=== PATIENT | female | born 1940 | race Caucasian/White ===

== ENCOUNTER 2020-09-22 14:13 | Inpatient (IN) ==
[2020-09-22] MEDS: Melatonin 3 MG TABLET PO SCH (22:17)
[2020-09-22] MEDS: Carbidopa/Levodopa 25/100 TABLET PO SCH (22:17)
[2020-09-23] MEDS: *HR* OxyCODONE/APAP 5/325 TABLET PO PRN ×2 (01:13→21:11)
[2020-09-23] MEDS: *HR* LORazepam 0.5 MG TABLET PO PRN (01:13)
[2020-09-23 05:05] LABS: Basophils % 0.4 %; Eosinophils # 0.1 K/mcL (0.0-0.6); Eosinophils % 1.1 %; Hematocrit 30.8 % (35.3-44.9); Immature Granulocytes % 0.6 % (0-4); Lymphocytes # 1.3 K/mcL (0.6-4.6); Mean Corpuscular HGB Conc 32.5 g/dL (31.6-35.5); Mean Corpuscular Hemoglobin 28.8 pg (28.0-33.3); Mean Corpuscular Volume 88.8 fL (83.0-100.0); Mean Platelet Volume 9.4 fL (9.4-12.4); Monocytes % 10.3 %; Neutrophils # 7.3 K/mcL (1.6-8.9); Platelet Count 391 K/mcL (140-400); Red Blood Count 3.47 M/mcL (3.82-4.97); Red Cell Distribution Width 13.1 % (11.5-14.5); Segmented Neutrophils % 74.6 %; White Blood Count 9.7 K/mcL (4.3-11.1)
[2020-09-23 05:18] LABS: BUN/Creatinine Ratio 24 (6-26); Blood Urea Nitrogen 11 mg/dL (8-23); Calcium 8.7 mg/dL (8.6-10.3); Carbon Dioxide 33 mEq/L (23-29); Chloride 92 mEq/L (98-107); Glucose 127 mg/dL (70-105); Osmolality,Calculated 273 (280-300); Sodium 131 mEq/L (136-145); eGFR For African Americans > 60 (> 60); eGFR For Non-African Americans > 60 (> 60)
[2020-09-23] MEDS: *HR* Enoxaparin 40 MG/0.4 ML SYRINGE SQ SCH (05:18)
[2020-09-23] MEDS: Carbidopa/Levodopa 25/100 TABLET PO SCH ×3 (09:46→21:11)
[2020-09-23] MEDS: Multivit/Ca/Min/Fe/FA 1 TAB TABLET PO SCH (09:46)
[2020-09-23] MEDS: *HR* Glimepiride 2 MG TABLET PO SCH (09:46)
[2020-09-23] MEDS: Potassium Chloride Elixir 20 MEQ/15 ML UDC PO SCH (09:47)
[2020-09-23] MEDS: amLODIPine 5 MG TABLET PO SCH (09:47)
[2020-09-23] MEDS: Cholecalciferol (D-3) 1,000 UNIT (25MCG) TABLET PO SCH (09:47)
[2020-09-23] MEDS: Aspirin 81 MG TAB.CHEW PO SCH (09:47)
[2020-09-23] MEDS: Ipratropium/Albuterol Neb 3 ML IH PRN ×2 (10:12→20:44)
[2020-09-23] MEDS: Furosemide 40 MG TABLET PO SCH (19:05)
[2020-09-23] MEDS: Melatonin 3 MG TABLET PO SCH (21:11)
[2020-09-24] MEDS: *HR* LORazepam 0.5 MG TABLET PO PRN ×2 (00:37→22:00)
[2020-09-24] MEDS: *HR* Enoxaparin 40 MG/0.4 ML SYRINGE SQ SCH (07:26)
[2020-09-24] MEDS: Cholecalciferol (D-3) 1,000 UNIT (25MCG) TABLET PO SCH (08:58)
[2020-09-24] MEDS: Aspirin 81 MG TAB.CHEW PO SCH (08:58)
[2020-09-24] MEDS: Carbidopa/Levodopa 25/100 TABLET PO SCH ×3 (08:59→21:54)
[2020-09-24] MEDS: *HR* Glimepiride 2 MG TABLET PO SCH (08:59)
[2020-09-24] MEDS: Multivit/Ca/Min/Fe/FA 1 TAB TABLET PO SCH (08:59)
[2020-09-24] MEDS: amLODIPine 5 MG TABLET PO SCH (08:59)
[2020-09-24] MEDS: Furosemide 40 MG TABLET PO SCH (09:00)
[2020-09-24] MEDS: polyethylene glycoL 3350 17 GM POWD.PACK PO SCH (09:00)
[2020-09-24] MEDS: Potassium Chloride Elixir 20 MEQ/15 ML UDC PO SCH (09:00)
[2020-09-24] MEDS: *HR* OxyCODONE/APAP 5/325 TABLET PO PRN ×2 (09:03→21:38)
[2020-09-24] MEDS: Melatonin 3 MG TABLET PO SCH (21:49)
[2020-09-25] MEDS: *HR* OxyCODONE/APAP 5/325 TABLET PO PRN ×3 (03:21→15:28)
[2020-09-25] MEDS: *HR* Enoxaparin 40 MG/0.4 ML SYRINGE SQ SCH (05:33)
[2020-09-25] MEDS: polyethylene glycoL 3350 17 GM POWD.PACK PO SCH (08:14)
[2020-09-25] MEDS: Potassium Chloride Elixir 20 MEQ/15 ML UDC PO SCH (08:14)
[2020-09-25] MEDS: amLODIPine 5 MG TABLET PO SCH (08:18)
[2020-09-25] MEDS: Aspirin 81 MG TAB.CHEW PO SCH (08:18)
[2020-09-25] MEDS: Cholecalciferol (D-3) 1,000 UNIT (25MCG) TABLET PO SCH (08:18)
[2020-09-25] MEDS: Furosemide 40 MG TABLET PO SCH (08:18)
[2020-09-25] MEDS: *HR* Glimepiride 2 MG TABLET PO SCH (08:18)
[2020-09-25] MEDS: Multivit/Ca/Min/Fe/FA 1 TAB TABLET PO SCH (08:19)
[2020-09-25] MEDS: Carbidopa/Levodopa 25/100 TABLET PO SCH ×3 (08:19→21:36)
[2020-09-25] MEDS: *HR* LORazepam 0.5 MG TABLET PO PRN (16:14)
[2020-09-25] MEDS: Melatonin 3 MG TABLET PO SCH (21:34)
[2020-09-26] MEDS: *HR* OxyCODONE/APAP 5/325 TABLET PO PRN ×4 (00:18→17:05)
[2020-09-26] MEDS: *HR* Enoxaparin 40 MG/0.4 ML SYRINGE SQ SCH (05:40)
[2020-09-26] MEDS: Cholecalciferol (D-3) 1,000 UNIT (25MCG) TABLET PO SCH (07:58)
[2020-09-26] MEDS: Furosemide 40 MG TABLET PO SCH (07:58)
[2020-09-26] MEDS: Multivit/Ca/Min/Fe/FA 1 TAB TABLET PO SCH (07:58)
[2020-09-26] MEDS: Aspirin 81 MG TAB.CHEW PO SCH (07:58)
[2020-09-26] MEDS: Potassium Chloride Elixir 20 MEQ/15 ML UDC PO SCH (07:58)
[2020-09-26] MEDS: *HR* Glimepiride 2 MG TABLET PO SCH (07:59)
[2020-09-26] MEDS: amLODIPine 5 MG TABLET PO SCH (07:59)
[2020-09-26] MEDS: Carbidopa/Levodopa 25/100 TABLET PO SCH ×3 (08:00→20:43)
[2020-09-26] MEDS: polyethylene glycoL 3350 17 GM POWD.PACK PO SCH (08:01)
[2020-09-26] MEDS: Melatonin 3 MG TABLET PO SCH (20:44)
[2020-09-27] MEDS: *HR* OxyCODONE/APAP 5/325 TABLET PO PRN ×3 (02:40→21:17)
[2020-09-27] MEDS: *HR* Enoxaparin 40 MG/0.4 ML SYRINGE SQ SCH (04:09)
[2020-09-27] MEDS: Ipratropium/Albuterol Neb 3 ML IH PRN (04:18)
[2020-09-27 05:57] LABS: Hematocrit 32.4 % (35.3-44.9); Hemoglobin 10.5 g/dL (11.5-15.4); Mean Corpuscular HGB Conc 32.4 g/dL (31.6-35.5); Mean Corpuscular Hemoglobin 28.9 pg (28.0-33.3); Mean Corpuscular Volume 89.3 fL (83.0-100.0); Mean Platelet Volume 9.1 fL (9.4-12.4); Platelet Count 432 K/mcL (140-400); Red Blood Count 3.63 M/mcL (3.82-4.97); Red Cell Distribution Width 12.8 % (11.5-14.5); White Blood Count 9.9 K/mcL (4.3-11.1)
[2020-09-27 06:13] LABS: Alanine Aminotransferase 17 Units/L (7-52); Albumin 3.4 g/dL (3.5-5.7); Albumin/Globulin Ratio 1.6 (1.1-2.2); Alkaline Phosphatase 70 Units/L (34-104); Aspartate Amino Transferase 46 Units/L (13-39); BUN/Creatinine Ratio 20 (6-26); Bilirubin,Total 0.7 mg/dL (0.3-1.0); Blood Urea Nitrogen 11 mg/dL (8-23); Calcium 8.8 mg/dL (8.6-10.3); Carbon Dioxide 35 mEq/L (23-29); Chloride 90 mEq/L (98-107); Globulin 2.1 g/dL (2.4-3.5); Glucose 122 mg/dL (70-105); Magnesium 2.1 mg/dL (1.6-2.6); Osmolality,Calculated 271 (280-300); Potassium 3.2 mEq/L (3.5-5.1); Sodium 130 mEq/L (136-145); Total Protein 5.5 g/dL (6.4-8.9); eGFR For African Americans > 60 (> 60); eGFR For Non-African Americans > 60 (> 60)
[2020-09-27] MEDS: polyethylene glycoL 3350 17 GM POWD.PACK PO SCH (08:37)
[2020-09-27] MEDS: Furosemide 40 MG TABLET PO SCH (08:38)
[2020-09-27] MEDS: Multivit/Ca/Min/Fe/FA 1 TAB TABLET PO SCH (08:38)
[2020-09-27] MEDS: Potassium Chloride Elixir 20 MEQ/15 ML UDC PO SCH (08:38)
[2020-09-27] MEDS: *HR* Glimepiride 2 MG TABLET PO SCH (08:39)
[2020-09-27] MEDS: Carbidopa/Levodopa 25/100 TABLET PO SCH ×3 (08:39→21:22)
[2020-09-27] MEDS: amLODIPine 5 MG TABLET PO SCH (08:39)
[2020-09-27] MEDS: Aspirin 81 MG TAB.CHEW PO SCH (08:39)
[2020-09-27] MEDS: Cholecalciferol (D-3) 1,000 UNIT (25MCG) TABLET PO SCH (08:39)
[2020-09-27] MEDS: Melatonin 3 MG TABLET PO SCH (21:18)
[2020-09-27] MEDS: *HR* LORazepam 0.5 MG TABLET PO PRN (21:23)
[2020-09-28] MEDS: *HR* OxyCODONE/APAP 5/325 TABLET PO PRN ×3 (01:25→21:10)
[2020-09-28] MEDS: *HR* Enoxaparin 40 MG/0.4 ML SYRINGE SQ SCH (06:08)
[2020-09-28] MEDS: Potassium Chloride Elixir 20 MEQ/15 ML UDC PO SCH (08:33)
[2020-09-28] MEDS: polyethylene glycoL 3350 17 GM POWD.PACK PO SCH (08:35)
[2020-09-28] MEDS: Aspirin 81 MG TAB.CHEW PO SCH (08:36)
[2020-09-28] MEDS: Cholecalciferol (D-3) 1,000 UNIT (25MCG) TABLET PO SCH (08:36)
[2020-09-28] MEDS: Multivit/Ca/Min/Fe/FA 1 TAB TABLET PO SCH ×2 (08:36)
[2020-09-28] MEDS: amLODIPine 5 MG TABLET PO SCH (08:36)
[2020-09-28] MEDS: Furosemide 40 MG TABLET PO SCH (08:36)
[2020-09-28] MEDS: Carbidopa/Levodopa 25/100 TABLET PO SCH ×3 (08:37→21:09)
[2020-09-28] MEDS: *HR* Glimepiride 2 MG TABLET PO SCH (08:37)
[2020-09-28] MEDS: *HR* LORazepam 0.5 MG TABLET PO PRN (09:58)
[2020-09-28] MEDS: Doxycycline 100 MG CAPSULE PO SCH (21:10)
[2020-09-28] MEDS: Melatonin 3 MG TABLET PO SCH (21:11)
[2020-09-28] MEDS: Ipratropium/Albuterol Neb 3 ML IH PRN (21:57)
[2020-09-29 04:59] LABS: Hematocrit 30.5 % (35.3-44.9); Hemoglobin 9.8 g/dL (11.5-15.4); Mean Corpuscular HGB Conc 32.1 g/dL (31.6-35.5); Mean Corpuscular Hemoglobin 28.7 pg (28.0-33.3); Mean Corpuscular Volume 89.4 fL (83.0-100.0); Platelet Count 381 K/mcL (140-400); Red Blood Count 3.41 M/mcL (3.82-4.97); Red Cell Distribution Width 13.5 % (11.5-14.5); White Blood Count 11.6 K/mcL (4.3-11.1)
[2020-09-29 05:15] LABS: BUN/Creatinine Ratio 23 (6-26); Blood Urea Nitrogen 16 mg/dL (8-23); Calcium 8.7 mg/dL (8.6-10.3); Carbon Dioxide 34 mEq/L (23-29); Chloride 95 mEq/L (98-107); Glucose 112 mg/dL (70-105); Magnesium 2.2 mg/dL (1.6-2.6); Osmolality,Calculated 280 (280-300); Potassium 4.6 mEq/L (3.5-5.1); Sodium 134 mEq/L (136-145); eGFR For African Americans > 60 (> 60); eGFR For Non-African Americans > 60 (> 60)
[2020-09-29] MEDS: *HR* Enoxaparin 40 MG/0.4 ML SYRINGE SQ SCH (06:24)
[2020-09-29] MEDS: *HR* OxyCODONE/APAP 5/325 TABLET PO PRN ×2 (06:24→17:40)
[2020-09-29] MEDS: amLODIPine 5 MG TABLET PO SCH (09:03)
[2020-09-29] MEDS: Aspirin 81 MG TAB.CHEW PO SCH (09:03)
[2020-09-29] MEDS: Cholecalciferol (D-3) 1,000 UNIT (25MCG) TABLET PO SCH (09:03)
[2020-09-29] MEDS: Carbidopa/Levodopa 25/100 TABLET PO SCH ×3 (09:03→21:52)
[2020-09-29] MEDS: *HR* Glimepiride 2 MG TABLET PO SCH (09:03)
[2020-09-29] MEDS: Furosemide 40 MG TABLET PO SCH (09:04)
[2020-09-29] MEDS: polyethylene glycoL 3350 17 GM POWD.PACK PO SCH (09:04)
[2020-09-29] MEDS: Potassium Chloride Elixir 20 MEQ/15 ML UDC PO SCH (09:04)
[2020-09-29] MEDS: Doxycycline 100 MG CAPSULE PO SCH ×2 (09:04→21:54)
[2020-09-29] MEDS: Multivit/Ca/Min/Fe/FA 1 TAB TABLET PO SCH (09:06)
[2020-09-29] MEDS: Ipratropium/Albuterol Neb 3 ML IH PRN (14:29)
[2020-09-29] MEDS: *HR* LORazepam 0.5 MG TABLET PO PRN (21:48)
[2020-09-29] MEDS: Melatonin 3 MG TABLET PO SCH (21:49)
[2020-09-30] MEDS: *HR* OxyCODONE/APAP 5/325 TABLET PO PRN ×2 (06:38→23:00)
[2020-09-30] MEDS: *HR* Enoxaparin 40 MG/0.4 ML SYRINGE SQ SCH (06:39)
[2020-09-30] MEDS: Cholecalciferol (D-3) 1,000 UNIT (25MCG) TABLET PO SCH (09:46)
[2020-09-30] MEDS: Aspirin 81 MG TAB.CHEW PO SCH (09:46)
[2020-09-30] MEDS: Carbidopa/Levodopa 25/100 TABLET PO SCH ×3 (09:46→23:00)
[2020-09-30] MEDS: amLODIPine 5 MG TABLET PO SCH (09:47)
[2020-09-30] MEDS: polyethylene glycoL 3350 17 GM POWD.PACK PO SCH (09:47)
[2020-09-30] MEDS: Potassium Chloride Elixir 20 MEQ/15 ML UDC PO SCH (09:47)
[2020-09-30] MEDS: *HR* Glimepiride 2 MG TABLET PO SCH (09:47)
[2020-09-30] MEDS: Doxycycline 100 MG CAPSULE PO SCH ×2 (09:47→23:00)
[2020-09-30] MEDS: Multivit/Ca/Min/Fe/FA 1 TAB TABLET PO SCH (09:47)
[2020-09-30] MEDS: Furosemide 40 MG TABLET PO SCH (09:47)
[2020-09-30] MEDS: *HR* LORazepam 0.5 MG TABLET PO PRN (22:55)
[2020-09-30] MEDS: Melatonin 3 MG TABLET PO SCH (22:56)
[2020-10-01 04:54] LABS: Basophils # 0.1 K/mcL (0.0-0.2); Basophils % 0.5 %; Eosinophils # 0.2 K/mcL (0.0-0.6); Eosinophils % 1.5 %; Hematocrit 29.8 % (35.3-44.9); Hemoglobin 9.6 g/dL (11.5-15.4); Immature Granulocytes % 0.6 % (0-4); Lymphocytes # 1.9 K/mcL (0.6-4.6); Lymphocytes % 14.8 %; Mean Corpuscular HGB Conc 32.2 g/dL (31.6-35.5); Mean Corpuscular Hemoglobin 29.3 pg (28.0-33.3); Mean Corpuscular Volume 90.9 fL (83.0-100.0); Monocytes # 0.9 K/mcL (0.0-1.3); Monocytes % 7.2 %; Neutrophils # 9.7 K/mcL (1.6-8.9); Platelet Count 361 K/mcL (140-400); Red Blood Count 3.28 M/mcL (3.82-4.97); Red Cell Distribution Width 13.8 % (11.5-14.5); Segmented Neutrophils % 75.4 %; White Blood Count 12.9 K/mcL (4.3-11.1)
[2020-10-01 05:08] LABS: BUN/Creatinine Ratio 25 (6-26); Blood Urea Nitrogen 16 mg/dL (8-23); Calcium 8.6 mg/dL (8.6-10.3); Carbon Dioxide 31 mEq/L (23-29); Chloride 98 mEq/L (98-107); Glucose 107 mg/dL (70-105); Osmolality,Calculated 282 (280-300); Potassium 3.6 mEq/L (3.5-5.1); Sodium 135 mEq/L (136-145); eGFR For African Americans > 60 (> 60); eGFR For Non-African Americans > 60 (> 60)
[2020-10-01] MEDS: *HR* OxyCODONE/APAP 5/325 TABLET PO PRN ×2 (05:51→20:41)
[2020-10-01] MEDS: *HR* Enoxaparin 40 MG/0.4 ML SYRINGE SQ SCH (05:52)
[2020-10-01] MEDS: Potassium Chloride Elixir 20 MEQ/15 ML UDC PO SCH (08:33)
[2020-10-01] MEDS: Aspirin 81 MG TAB.CHEW PO SCH (08:35)
[2020-10-01] MEDS: Cholecalciferol (D-3) 1,000 UNIT (25MCG) TABLET PO SCH (08:35)
[2020-10-01] MEDS: amLODIPine 5 MG TABLET PO SCH (08:35)
[2020-10-01] MEDS: Doxycycline 100 MG CAPSULE PO SCH ×2 (08:35→20:39)
[2020-10-01] MEDS: Carbidopa/Levodopa 25/100 TABLET PO SCH ×3 (08:36→20:40)
[2020-10-01] MEDS: *HR* Glimepiride 2 MG TABLET PO SCH (08:36)
[2020-10-01] MEDS: Multivit/Ca/Min/Fe/FA 1 TAB TABLET PO SCH (08:37)
[2020-10-01] MEDS: polyethylene glycoL 3350 17 GM POWD.PACK PO SCH (08:37)
[2020-10-01] MEDS: Furosemide 40 MG TABLET PO SCH (08:37)
[2020-10-01] MEDS: *HR* LORazepam 0.5 MG TABLET PO PRN ×2 (11:18→20:40)
[2020-10-01] MEDS: Melatonin 3 MG TABLET PO SCH (20:39)
[2020-10-02] MEDS: *HR* OxyCODONE/APAP 5/325 TABLET PO PRN ×2 (05:20→22:46)
[2020-10-02] MEDS: *HR* Enoxaparin 40 MG/0.4 ML SYRINGE SQ SCH (05:20)
[2020-10-02 06:12] LABS: Basophils # 0.1 K/mcL (0.0-0.2); Basophils % 0.4 %; Eosinophils # 0.2 K/mcL (0.0-0.6); Eosinophils % 1.6 %; Hematocrit 32.2 % (35.3-44.9); Hemoglobin 10.2 g/dL (11.5-15.4); Immature Granulocytes % 0.5 % (0-4); Lymphocytes # 1.8 K/mcL (0.6-4.6); Lymphocytes % 15.1 %; Mean Corpuscular HGB Conc 31.7 g/dL (31.6-35.5); Mean Corpuscular Hemoglobin 28.9 pg (28.0-33.3); Mean Corpuscular Volume 91.2 fL (83.0-100.0); Mean Platelet Volume 9.5 fL (9.4-12.4); Monocytes # 0.7 K/mcL (0.0-1.3); Monocytes % 5.9 %; Platelet Count 422 K/mcL (140-400); Red Blood Count 3.53 M/mcL (3.82-4.97); Red Cell Distribution Width 13.9 % (11.5-14.5); Segmented Neutrophils % 76.5 %; White Blood Count 12.2 K/mcL (4.3-11.1)
[2020-10-02 06:25] LABS: BUN/Creatinine Ratio 32 (6-26); Blood Urea Nitrogen 19 mg/dL (8-23); Calcium 8.7 mg/dL (8.6-10.3); Carbon Dioxide 33 mEq/L (23-29); Chloride 98 mEq/L (98-107); Glucose 107 mg/dL (70-105); Osmolality,Calculated 285 (280-300); Potassium 3.7 mEq/L (3.5-5.1); Sodium 136 mEq/L (136-145); eGFR For African Americans > 60 (> 60); eGFR For Non-African Americans > 60 (> 60)
[2020-10-02 06:29] LABS: Neutrophils # 9.3 K/mcL (1.6-8.9)
[2020-10-02] MEDS: polyethylene glycoL 3350 17 GM POWD.PACK PO SCH (09:57)
[2020-10-02] MEDS: Furosemide 40 MG TABLET PO SCH (09:58)
[2020-10-02] MEDS: Carbidopa/Levodopa 25/100 TABLET PO SCH ×3 (09:58→22:45)
[2020-10-02] MEDS: Potassium Chloride Elixir 20 MEQ/15 ML UDC PO SCH (09:58)
[2020-10-02] MEDS: Aspirin 81 MG TAB.CHEW PO SCH (09:58)
[2020-10-02] MEDS: *HR* Glimepiride 2 MG TABLET PO SCH (09:59)
[2020-10-02] MEDS: Doxycycline 100 MG CAPSULE PO SCH ×2 (09:59→22:44)
[2020-10-02] MEDS: amLODIPine 5 MG TABLET PO SCH (09:59)
[2020-10-02] MEDS: Multivit/Ca/Min/Fe/FA 1 TAB TABLET PO SCH ×2 (09:59→10:24)
[2020-10-02] MEDS: Cholecalciferol (D-3) 1,000 UNIT (25MCG) TABLET PO SCH (10:00)
[2020-10-02] MEDS: Melatonin 3 MG TABLET PO SCH (22:44)
[2020-10-02] MEDS: *HR* LORazepam 0.5 MG TABLET PO PRN (22:45)
[2020-10-03] MEDS: *HR* OxyCODONE/APAP 5/325 TABLET PO PRN ×2 (03:25→21:01)
[2020-10-03] MEDS: *HR* Enoxaparin 40 MG/0.4 ML SYRINGE SQ SCH (06:40)
[2020-10-03] MEDS: Potassium Chloride Elixir 20 MEQ/15 ML UDC PO SCH (09:03)
[2020-10-03] MEDS: Cholecalciferol (D-3) 1,000 UNIT (25MCG) TABLET PO SCH (09:03)
[2020-10-03] MEDS: Furosemide 40 MG TABLET PO SCH (09:03)
[2020-10-03] MEDS: Doxycycline 100 MG CAPSULE PO SCH ×2 (09:03→20:55)
[2020-10-03] MEDS: Carbidopa/Levodopa 25/100 TABLET PO SCH ×3 (09:03→20:55)
[2020-10-03] MEDS: Aspirin 81 MG TAB.CHEW PO SCH (09:03)
[2020-10-03] MEDS: *HR* Glimepiride 2 MG TABLET PO SCH (09:04)
[2020-10-03] MEDS: amLODIPine 5 MG TABLET PO SCH (09:05)
[2020-10-03] MEDS: Multivit/Ca/Min/Fe/FA 1 TAB TABLET PO SCH (09:08)
[2020-10-03] MEDS: polyethylene glycoL 3350 17 GM POWD.PACK PO SCH (09:08)
[2020-10-03] MEDS: Melatonin 3 MG TABLET PO SCH (20:55)
[2020-10-03] MEDS: *HR* LORazepam 0.5 MG TABLET PO PRN (23:41)
[2020-10-04] MEDS: *HR* Enoxaparin 40 MG/0.4 ML SYRINGE SQ SCH (05:09)
[2020-10-04 06:06] LABS: Basophils # 0.1 K/mcL (0.0-0.2); Basophils % 0.5 %; Eosinophils # 0.2 K/mcL (0.0-0.6); Eosinophils % 1.6 %; Hematocrit 32.7 % (35.3-44.9); Hemoglobin 10.1 g/dL (11.5-15.4); Immature Granulocytes % 0.5 % (0-4); Lymphocytes # 1.7 K/mcL (0.6-4.6); Lymphocytes % 15.5 %; Mean Corpuscular HGB Conc 30.9 g/dL (31.6-35.5); Mean Corpuscular Hemoglobin 28.4 pg (28.0-33.3); Mean Corpuscular Volume 91.9 fL (83.0-100.0); Mean Platelet Volume 9.4 fL (9.4-12.4); Monocytes # 0.8 K/mcL (0.0-1.3); Monocytes % 7.5 %; Neutrophils # 8.2 K/mcL (1.6-8.9); Platelet Count 437 K/mcL (140-400); Red Blood Count 3.56 M/mcL (3.82-4.97); Segmented Neutrophils % 74.4 %
[2020-10-04 06:23] LABS: BUN/Creatinine Ratio 34 (6-26); Blood Urea Nitrogen 22 mg/dL (8-23); Calcium 8.8 mg/dL (8.6-10.3); Carbon Dioxide 34 mEq/L (23-29); Chloride 99 mEq/L (98-107); Glucose 106 mg/dL (70-105); Osmolality,Calculated 290 (280-300); Potassium 3.7 mEq/L (3.5-5.1); Sodium 138 mEq/L (136-145); eGFR For African Americans > 60 (> 60); eGFR For Non-African Americans > 60 (> 60)
[2020-10-04] MEDS: amLODIPine 5 MG TABLET PO SCH (08:44)
[2020-10-04] MEDS: Cholecalciferol (D-3) 1,000 UNIT (25MCG) TABLET PO SCH (08:44)
[2020-10-04] MEDS: Potassium Chloride Elixir 20 MEQ/15 ML UDC PO SCH (08:44)
[2020-10-04] MEDS: Multivit/Ca/Min/Fe/FA 1 TAB TABLET PO SCH (08:45)
[2020-10-04] MEDS: Carbidopa/Levodopa 25/100 TABLET PO SCH ×3 (08:45→20:19)
[2020-10-04] MEDS: *HR* Glimepiride 2 MG TABLET PO SCH (08:45)
[2020-10-04] MEDS: Doxycycline 100 MG CAPSULE PO SCH ×2 (08:45→20:18)
[2020-10-04] MEDS: Furosemide 40 MG TABLET PO SCH (08:46)
[2020-10-04] MEDS: Aspirin 81 MG TAB.CHEW PO SCH (08:46)
[2020-10-04] MEDS: polyethylene glycoL 3350 17 GM POWD.PACK PO SCH (08:46)
[2020-10-04] MEDS: *HR* OxyCODONE/APAP 5/325 TABLET PO PRN ×2 (09:52→20:19)
[2020-10-04] MEDS: Melatonin 3 MG TABLET PO SCH (20:17)
[2020-10-05] MEDS: *HR* LORazepam 0.5 MG TABLET PO PRN ×2 (02:55→23:37)
[2020-10-05] MEDS: *HR* OxyCODONE/APAP 5/325 TABLET PO PRN ×3 (06:24→21:18)
[2020-10-05] MEDS: *HR* Enoxaparin 40 MG/0.4 ML SYRINGE SQ SCH (06:25)
[2020-10-05] MEDS: Doxycycline 100 MG CAPSULE PO SCH ×2 (09:50→21:18)
[2020-10-05] MEDS: *HR* Glimepiride 2 MG TABLET PO SCH (09:50)
[2020-10-05] MEDS: Furosemide 40 MG TABLET PO SCH (09:50)
[2020-10-05] MEDS: Carbidopa/Levodopa 25/100 TABLET PO SCH ×3 (09:50→21:20)
[2020-10-05] MEDS: Cholecalciferol (D-3) 1,000 UNIT (25MCG) TABLET PO SCH (09:50)
[2020-10-05] MEDS: polyethylene glycoL 3350 17 GM POWD.PACK PO SCH (09:51)
[2020-10-05] MEDS: Aspirin 81 MG TAB.CHEW PO SCH (09:51)
[2020-10-05] MEDS: Multivit/Ca/Min/Fe/FA 1 TAB TABLET PO SCH (09:51)
[2020-10-05] MEDS: Potassium Chloride Elixir 20 MEQ/15 ML UDC PO SCH (09:51)
[2020-10-05] MEDS: amLODIPine 5 MG TABLET PO SCH (09:51)
[2020-10-05] MEDS: Melatonin 3 MG TABLET PO SCH (21:21)
[2020-10-06] MEDS: *HR* OxyCODONE/APAP 5/325 TABLET PO PRN ×2 (06:03→21:51)
[2020-10-06] MEDS: *HR* Enoxaparin 40 MG/0.4 ML SYRINGE SQ SCH (06:03)
[2020-10-06] MEDS: polyethylene glycoL 3350 17 GM POWD.PACK PO SCH (10:21)
[2020-10-06] MEDS: Potassium Chloride Elixir 20 MEQ/15 ML UDC PO SCH (10:21)
[2020-10-06] MEDS: Multivit/Ca/Min/Fe/FA 1 TAB TABLET PO SCH (10:22)
[2020-10-06] MEDS: amLODIPine 5 MG TABLET PO SCH (10:22)
[2020-10-06] MEDS: Furosemide 40 MG TABLET PO SCH (10:22)
[2020-10-06] MEDS: Aspirin 81 MG TAB.CHEW PO SCH (10:22)
[2020-10-06] MEDS: *HR* Glimepiride 2 MG TABLET PO SCH (10:23)
[2020-10-06] MEDS: Cholecalciferol (D-3) 1,000 UNIT (25MCG) TABLET PO SCH (10:24)
[2020-10-06] MEDS: Carbidopa/Levodopa 25/100 TABLET PO SCH ×3 (10:24→21:50)
[2020-10-06] MEDS ORDERED: tiZANidine 4 MG TABLET PO PRN (11:43)
[2020-10-06] MEDS: Melatonin 3 MG TABLET PO SCH (21:49)
[2020-10-06] MEDS: *HR* LORazepam 0.5 MG TABLET PO PRN (21:51)
[2020-10-07] MEDS: *HR* Enoxaparin 40 MG/0.4 ML SYRINGE SQ SCH (06:16)
[2020-10-07] MEDS: Potassium Chloride Elixir 20 MEQ/15 ML UDC PO SCH (09:16)
[2020-10-07] MEDS: *HR* Glimepiride 2 MG TABLET PO SCH (09:17)
[2020-10-07] MEDS: amLODIPine 5 MG TABLET PO SCH (09:17)
[2020-10-07] MEDS: Carbidopa/Levodopa 25/100 TABLET PO SCH ×3 (09:17→21:02)
[2020-10-07] MEDS: Furosemide 40 MG TABLET PO SCH (09:17)
[2020-10-07] MEDS: Aspirin 81 MG TAB.CHEW PO SCH (09:17)
[2020-10-07] MEDS: polyethylene glycoL 3350 17 GM POWD.PACK PO SCH (09:17)
[2020-10-07] MEDS: Cholecalciferol (D-3) 1,000 UNIT (25MCG) TABLET PO SCH (09:17)
[2020-10-07] MEDS: Multivit/Ca/Min/Fe/FA 1 TAB TABLET PO SCH (09:31)
[2020-10-07] MEDS: Loratadine 10 MG TABLET PO SCH (14:39)
[2020-10-07] MEDS: Melatonin 3 MG TABLET PO SCH (21:02)
[2020-10-07] MEDS: *HR* OxyCODONE/APAP 5/325 TABLET PO PRN (21:03)
[2020-10-07] MEDS: *HR* LORazepam 0.5 MG TABLET PO PRN (23:32)
[2020-10-08] MEDS: *HR* OxyCODONE/APAP 5/325 TABLET PO PRN ×2 (05:41→23:41)
[2020-10-08] MEDS: *HR* Enoxaparin 40 MG/0.4 ML SYRINGE SQ SCH (05:41)
[2020-10-08] MEDS: Potassium Chloride Elixir 20 MEQ/15 ML UDC PO SCH (08:13)
[2020-10-08] MEDS: Cholecalciferol (D-3) 1,000 UNIT (25MCG) TABLET PO SCH (08:13)
[2020-10-08] MEDS: amLODIPine 5 MG TABLET PO SCH (08:13)
[2020-10-08] MEDS: Furosemide 40 MG TABLET PO SCH (08:14)
[2020-10-08] MEDS: Loratadine 10 MG TABLET PO SCH (08:14)
[2020-10-08] MEDS: *HR* Glimepiride 2 MG TABLET PO SCH (08:14)
[2020-10-08] MEDS: Carbidopa/Levodopa 25/100 TABLET PO SCH ×3 (08:14→21:04)
[2020-10-08] MEDS: Aspirin 81 MG TAB.CHEW PO SCH (08:15)
[2020-10-08] MEDS: polyethylene glycoL 3350 17 GM POWD.PACK PO SCH (08:15)
[2020-10-08] MEDS: Melatonin 3 MG TABLET PO SCH (21:06)
[2020-10-08] MEDS: *HR* LORazepam 0.5 MG TABLET PO PRN (21:07)
[2020-10-09] MEDS: *HR* Enoxaparin 40 MG/0.4 ML SYRINGE SQ SCH (04:43)
[2020-10-09] MEDS: Potassium Chloride Elixir 20 MEQ/15 ML UDC PO SCH (10:04)
[2020-10-09] MEDS: polyethylene glycoL 3350 17 GM POWD.PACK PO SCH (10:04)
[2020-10-09] MEDS: Loratadine 10 MG TABLET PO SCH (10:05)
[2020-10-09] MEDS: *HR* Glimepiride 2 MG TABLET PO SCH (10:05)
[2020-10-09] MEDS: Aspirin 81 MG TAB.CHEW PO SCH (10:05)
[2020-10-09] MEDS: Furosemide 40 MG TABLET PO SCH (10:05)
[2020-10-09] MEDS: Cholecalciferol (D-3) 1,000 UNIT (25MCG) TABLET PO SCH (10:05)
[2020-10-09] MEDS: Carbidopa/Levodopa 25/100 TABLET PO SCH ×3 (10:06→22:04)
[2020-10-09] MEDS: amLODIPine 5 MG TABLET PO SCH (10:06)
[2020-10-09] MEDS: *HR* OxyCODONE/APAP 5/325 TABLET PO PRN ×2 (11:26→22:03)
[2020-10-09] MEDS: *HR* LORazepam 0.5 MG TABLET PO PRN (15:17)
[2020-10-09] MEDS: Melatonin 3 MG TABLET PO SCH (22:03)
[2020-10-10] MEDS: *HR* Enoxaparin 40 MG/0.4 ML SYRINGE SQ SCH (04:48)
[2020-10-10] MEDS: *HR* OxyCODONE/APAP 5/325 TABLET PO PRN (04:48)
[2020-10-10 07:51] VITALS: BP 157/79
[2020-10-10] MEDS: Cholecalciferol (D-3) 1,000 UNIT (25MCG) TABLET PO SCH (09:11)
[2020-10-10] MEDS: Loratadine 10 MG TABLET PO SCH (09:11)
[2020-10-10] MEDS: Carbidopa/Levodopa 25/100 TABLET PO SCH (09:11)
[2020-10-10] MEDS: Potassium Chloride Elixir 20 MEQ/15 ML UDC PO SCH (09:11)
[2020-10-10] MEDS: Aspirin 81 MG TAB.CHEW PO SCH (09:11)
[2020-10-10] MEDS: amLODIPine 5 MG TABLET PO SCH (09:11)
[2020-10-10] MEDS: polyethylene glycoL 3350 17 GM POWD.PACK PO SCH (09:11)
[2020-10-10] MEDS: Furosemide 40 MG TABLET PO SCH (09:12)
[2020-10-10] MEDS: *HR* Glimepiride 2 MG TABLET PO SCH (09:12)
[2020-10-10 09:40] LABS: Basophils % 0.6 %; Eosinophils # 0.1 K/mcL (0.0-0.6); Hematocrit 36.1 % (35.3-44.9); Hemoglobin 11.3 g/dL (11.5-15.4); Immature Granulocytes % 0.3 % (0-4); Lymphocytes # 0.9 K/mcL (0.6-4.6); Lymphocytes % 12.7 %; Mean Corpuscular HGB Conc 31.3 g/dL (31.6-35.5); Mean Corpuscular Volume 92.6 fL (83.0-100.0); Mean Platelet Volume 9.1 fL (9.4-12.4); Monocytes # 0.4 K/mcL (0.0-1.3); Monocytes % 5.2 %; Neutrophils # 5.6 K/mcL (1.6-8.9); Platelet Count 465 K/mcL (140-400); Segmented Neutrophils % 80.2 %
[2020-10-10 09:53] LABS: BUN/Creatinine Ratio 19 (6-26); Blood Urea Nitrogen 13 mg/dL (8-23); Calcium 8.8 mg/dL (8.6-10.3); Carbon Dioxide 34 mEq/L (23-29); Chloride 99 mEq/L (98-107); Glucose 151 mg/dL (70-105); Osmolality,Calculated 289 (280-300); Sodium 138 mEq/L (136-145); eGFR For African Americans > 60 (> 60); eGFR For Non-African Americans > 60 (> 60)
== END 2020-10-10 13:15 | disposition home health service (06) | DRG 559 ==
LOC: INPGRE 18:10
PROVIDERS: ADMIT Family Medicine; ATTEND Family Medicine

== ENCOUNTER 2021-09-28 18:59 | Inpatient (IN) ==
[~2021-09-28 18:59] MED LIST: Ipratropium/Albuterol Neb 3 ML IH PRN; Nystatin POWDER 30 GM BOTTLE TP PRN
[2021-09-29] MEDS ORDERED: Torsemide 20 MG TABLET PO PRN (18:56)
[2021-09-29] MEDS: Carbidopa/Levodopa 25/100 TABLET PO SCH (20:38)
[2021-09-29] MEDS: *HR* LORazepam 0.5 MG TABLET PO SCH (20:38)
[2021-09-29] MEDS: Melatonin 3 MG TABLET PO SCH (20:39)
[2021-09-29] MEDS: Ibuprofen 600 MG TABLET PO SCH (20:41)
[2021-09-30] MEDS: Potassium Chloride Elixir 20 MEQ/15 ML UDC PO SCH ×2 (08:57→13:02)
[2021-09-30] MEDS: Ibuprofen 600 MG TABLET PO SCH ×4 (08:58→21:06)
[2021-09-30] MEDS: Cholecalciferol (D-3) 1,000 UNIT (25MCG) TABLET PO SCH ×2 (08:59→13:02)
[2021-09-30] MEDS: Aspirin 81 MG TAB.CHEW PO SCH ×2 (09:02→12:59)
[2021-09-30] MEDS: Spironolactone 25 MG TABLET PO SCH ×2 (09:03→12:59)
[2021-09-30] MEDS: Carbidopa/Levodopa 25/100 TABLET PO SCH ×6 (09:05→21:06)
[2021-09-30] MEDS: *HR* LORazepam 0.5 MG TABLET PO SCH ×4 (09:05→21:07)
[2021-09-30] MEDS: *HR* Enoxaparin 40 MG/0.4 ML SYRINGE SQ SCH ×2 (09:07→12:59)
[2021-09-30] MEDS ORDERED: MOM Conc 10 ML UD.LIQ PO PRN (15:17)
[2021-09-30 19:59] LABS: Adenovirus Not Detected (Not Detect); Bordetella Pertussis Not Detected (Not Detect); Chlamydophila pneumoniae Not Detected (Not Detect); Coronavirus 229E Not Detected (Not Detect); Coronavirus HKU1 Not Detected (Not Detect); Coronavirus NL63 Not Detected (Not Detect); Coronavirus OC43 Not Detected (Not Detect); Human Metapneumovirus Not Detected (Not Detect); Human Rhinovirus/Enterovirus Not Detected (Not Detect); Influenza A Subtype 2009 H1 Not Detected (Not Detect); Influenza B Not Detected (Not Detect); Mycoplasma pneumoniae Not Detected (Not Detect); Parainfluenza Virus 1 Not Detected (Not Detect); Parainfluenza Virus 2 Not Detected (Not Detect); Parainfluenza Virus 3 Not Detected (Not Detect); Parainfluenza Virus 4 Not Detected (Not Detect); Respiratory Syncytial Virus Not Detected (Not Detect); SARS-CoV-2 Not Detected (Not Detect)
[2021-09-30] MEDS: Melatonin 3 MG TABLET PO SCH (21:05)
[2021-10-01] MEDS: *HR* Enoxaparin 40 MG/0.4 ML SYRINGE SQ SCH (04:40)
[2021-10-01 04:50] LABS: Hematocrit 37.8 % (35.3-44.9); Hemoglobin 11.4 g/dL (11.5-15.4); Mean Corpuscular HGB Conc 30.2 g/dL (31.6-35.5); Mean Corpuscular Hemoglobin 27.2 pg (28.0-33.3); Mean Corpuscular Volume 90.2 fL (83.0-100.0); Mean Platelet Volume 9.7 fL (9.4-12.4); Platelet Count 302 K/mcL (140-400); Red Blood Count 4.19 M/mcL (3.82-4.97); White Blood Count 7.3 K/mcL (4.3-11.1)
[2021-10-01 05:08] LABS: BUN/Creatinine Ratio 35 (6-26); Blood Urea Nitrogen 22 mg/dL (8-23); Carbon Dioxide 40 mEq/L (23-29); Chloride 95 mEq/L (98-107); Glucose 102 mg/dL (70-105); Osmolality,Calculated 286 (280-300); Potassium 4.4 mEq/L (3.5-5.1); Sodium 136 mEq/L (136-145); eGFR For African Americans > 60 (> 60); eGFR For Non-African Americans > 60 (> 60)
[2021-10-01] MEDS: Ibuprofen 600 MG TABLET PO SCH ×2 (08:08→20:27)
[2021-10-01] MEDS: Potassium Chloride Elixir 20 MEQ/15 ML UDC PO SCH (08:08)
[2021-10-01] MEDS: Carbidopa/Levodopa 25/100 TABLET PO SCH ×3 (08:12→20:23)
[2021-10-01] MEDS: Cholecalciferol (D-3) 1,000 UNIT (25MCG) TABLET PO SCH (08:12)
[2021-10-01] MEDS: *HR* LORazepam 0.5 MG TABLET PO SCH ×2 (08:12→20:25)
[2021-10-01] MEDS: Aspirin 81 MG TAB.CHEW PO SCH (08:13)
[2021-10-01] MEDS: Spironolactone 25 MG TABLET PO SCH (08:13)
[2021-10-01] MEDS: Sennosides/Docusate Sodium TABLET PO PRN (08:13)
[2021-10-01] MEDS: acetaZOLAMIDE 250 MG TABLET PO SCH ×2 (12:33→20:26)
[2021-10-01 17:53] LABS: Bilirubin,Urine Negative (Negative); Blood,Urine Negative (Negative); Clarity,Urine Slightly Cloudy (Clear); Color,Urine Yellow (Yellow); Glucose,Urine (UA) Normal (Normal); Ketones,Urine Negative (Negative); Leukocyte Esterase,Urine Negative (Negative); Nitrite,Urine Negative (Negative); PH,Urine 8.5 pH Units (5.0-8.0); Protein,Urine Negative (Neg-Trace); Specific Gravity,Urine 1.015 (1.010-1.025); Urobilinogen,Urine Normal (Normal)
[2021-10-01] MEDS: Melatonin 3 MG TABLET PO SCH (20:26)
[2021-10-02 04:56] LABS: Hematocrit 33.8 % (35.3-44.9); Hemoglobin 10.4 g/dL (11.5-15.4); Mean Corpuscular HGB Conc 30.8 g/dL (31.6-35.5); Mean Corpuscular Hemoglobin 27.7 pg (28.0-33.3); Mean Corpuscular Volume 89.9 fL (83.0-100.0); Mean Platelet Volume 9.8 fL (9.4-12.4); Platelet Count 270 K/mcL (140-400); Red Blood Count 3.76 M/mcL (3.82-4.97); Red Cell Distribution Width 14.1 % (11.5-14.5); White Blood Count 7.1 K/mcL (4.3-11.1)
[2021-10-02 05:09] LABS: BUN/Creatinine Ratio 37 (6-26); Blood Urea Nitrogen 25 mg/dL (8-23); Calcium 8.8 mg/dL (8.6-10.3); Carbon Dioxide 37 mEq/L (23-29); Chloride 98 mEq/L (98-107); Glucose 108 mg/dL (70-105); Magnesium 2.3 mg/dL (1.6-2.6); Osmolality,Calculated 287 (280-300); Potassium 4.1 mEq/L (3.5-5.1); Sodium 136 mEq/L (136-145); eGFR For African Americans > 60 (> 60); eGFR For Non-African Americans > 60 (> 60)
[2021-10-02 05:48] LABS: Thyroid Stimulating Hormone 1.812 mcIU/mL (0.340-5.600)
[2021-10-02] MEDS: *HR* Enoxaparin 40 MG/0.4 ML SYRINGE SQ SCH (05:59)
[2021-10-02] MEDS: Potassium Chloride Elixir 20 MEQ/15 ML UDC PO SCH (08:12)
[2021-10-02] MEDS: *HR* LORazepam 0.5 MG TABLET PO SCH ×2 (08:13→20:49)
[2021-10-02] MEDS: Spironolactone 25 MG TABLET PO SCH (08:13)
[2021-10-02] MEDS: Ibuprofen 600 MG TABLET PO SCH ×2 (08:13→20:49)
[2021-10-02] MEDS: acetaZOLAMIDE 250 MG TABLET PO SCH ×2 (08:14→20:50)
[2021-10-02] MEDS: Aspirin 81 MG TAB.CHEW PO SCH (08:14)
[2021-10-02] MEDS: Cholecalciferol (D-3) 1,000 UNIT (25MCG) TABLET PO SCH (08:14)
[2021-10-02] MEDS: Carbidopa/Levodopa 25/100 TABLET PO SCH ×3 (08:14→20:50)
[2021-10-02] MEDS: Melatonin 3 MG TABLET PO SCH (20:48)
[2021-10-03] MEDS: *HR* Enoxaparin 40 MG/0.4 ML SYRINGE SQ SCH (05:49)
[2021-10-03] MEDS: Cholecalciferol (D-3) 1,000 UNIT (25MCG) TABLET PO SCH (09:46)
[2021-10-03] MEDS: Carbidopa/Levodopa 25/100 TABLET PO SCH ×3 (09:46→21:22)
[2021-10-03] MEDS: Aspirin 81 MG TAB.CHEW PO SCH (09:46)
[2021-10-03] MEDS: Ibuprofen 600 MG TABLET PO SCH ×2 (09:46→21:21)
[2021-10-03] MEDS: *HR* LORazepam 0.5 MG TABLET PO SCH ×2 (09:47→21:23)
[2021-10-03] MEDS: Potassium Chloride Elixir 20 MEQ/15 ML UDC PO SCH (09:47)
[2021-10-03] MEDS: Spironolactone 25 MG TABLET PO SCH (09:47)
[2021-10-03] MEDS: acetaZOLAMIDE 250 MG TABLET PO SCH ×2 (09:47→21:22)
[2021-10-03] MEDS: Sennosides/Docusate Sodium TABLET PO PRN (21:21)
[2021-10-03] MEDS: Melatonin 3 MG TABLET PO SCH (21:22)
[2021-10-04 04:39] LABS: Hemoglobin 10.2 g/dL (11.5-15.4); Mean Corpuscular Hemoglobin 27.3 pg (28.0-33.3); Mean Corpuscular Volume 91.2 fL (83.0-100.0); Platelet Count 256 K/mcL (140-400); Red Blood Count 3.73 M/mcL (3.82-4.97); Red Cell Distribution Width 14.2 % (11.5-14.5)
[2021-10-04 04:59] LABS: Alanine Aminotransferase 7 Units/L (7-52); Albumin 3.5 g/dL (3.5-5.7); Albumin/Globulin Ratio 1.6 (1.1-2.2); Alkaline Phosphatase 99 Units/L (34-104); Aspartate Amino Transferase 23 Units/L (13-39); BUN/Creatinine Ratio 35 (6-26); Bilirubin,Total 0.3 mg/dL (0.3-1.0); Blood Urea Nitrogen 25 mg/dL (8-23); Calcium 8.5 mg/dL (8.6-10.3); Carbon Dioxide 33 mEq/L (23-29); Chloride 103 mEq/L (98-107); Globulin 2.2 g/dL (2.4-3.5); Glucose 118 mg/dL (70-105); Magnesium 2.3 mg/dL (1.6-2.6); Osmolality,Calculated 293 (280-300); Potassium 4.2 mEq/L (3.5-5.1); Sodium 139 mEq/L (136-145); Total Protein 5.7 g/dL (6.4-8.9); eGFR For African Americans > 60 (> 60); eGFR For Non-African Americans > 60 (> 60)
[2021-10-04] MEDS: *HR* Enoxaparin 40 MG/0.4 ML SYRINGE SQ SCH (05:52)
[2021-10-04] MEDS: Potassium Chloride Elixir 20 MEQ/15 ML UDC PO SCH (09:48)
[2021-10-04] MEDS: Carbidopa/Levodopa 25/100 TABLET PO SCH ×3 (09:48→21:03)
[2021-10-04] MEDS: *HR* LORazepam 0.5 MG TABLET PO SCH ×2 (09:49→21:05)
[2021-10-04] MEDS: Ibuprofen 600 MG TABLET PO SCH ×2 (09:49→21:05)
[2021-10-04] MEDS: Spironolactone 25 MG TABLET PO SCH (09:49)
[2021-10-04] MEDS: Cholecalciferol (D-3) 1,000 UNIT (25MCG) TABLET PO SCH (09:49)
[2021-10-04] MEDS: acetaZOLAMIDE 250 MG TABLET PO SCH ×2 (09:49→21:04)
[2021-10-04] MEDS: Aspirin 81 MG TAB.CHEW PO SCH (09:49)
[2021-10-04] MEDS: Sennosides/Docusate Sodium TABLET PO PRN (21:03)
[2021-10-04] MEDS: Melatonin 3 MG TABLET PO SCH (21:05)
[2021-10-05] MEDS: *HR* Enoxaparin 40 MG/0.4 ML SYRINGE SQ SCH (06:05)
[2021-10-05] MEDS: Spironolactone 25 MG TABLET PO SCH (08:04)
[2021-10-05] MEDS: Cholecalciferol (D-3) 1,000 UNIT (25MCG) TABLET PO SCH (08:04)
[2021-10-05] MEDS: Potassium Chloride Elixir 20 MEQ/15 ML UDC PO SCH (08:04)
[2021-10-05] MEDS: acetaZOLAMIDE 250 MG TABLET PO SCH ×2 (08:05→22:03)
[2021-10-05] MEDS: Carbidopa/Levodopa 25/100 TABLET PO SCH ×3 (08:05→22:04)
[2021-10-05] MEDS: Ibuprofen 600 MG TABLET PO SCH ×2 (08:06→22:04)
[2021-10-05] MEDS: *HR* LORazepam 0.5 MG TABLET PO SCH ×2 (08:06→22:02)
[2021-10-05] MEDS: Aspirin 81 MG TAB.CHEW PO SCH (08:06)
[2021-10-05] MEDS: Melatonin 3 MG TABLET PO SCH (22:03)
[2021-10-06] MEDS: *HR* Enoxaparin 40 MG/0.4 ML SYRINGE SQ SCH (06:16)
[2021-10-06 06:40] VITALS: BP 137/81; PULSE 58; RESP 16; TEMP 98.2; O2SAT 96
[2021-10-06] MEDS: Potassium Chloride Elixir 20 MEQ/15 ML UDC PO SCH (10:11)
[2021-10-06] MEDS: Cholecalciferol (D-3) 1,000 UNIT (25MCG) TABLET PO SCH (10:11)
[2021-10-06] MEDS: Aspirin 81 MG TAB.CHEW PO SCH (10:12)
[2021-10-06] MEDS: Ibuprofen 600 MG TABLET PO SCH (10:12)
[2021-10-06] MEDS: Spironolactone 25 MG TABLET PO SCH (10:12)
[2021-10-06] MEDS: *HR* LORazepam 0.5 MG TABLET PO SCH (10:13)
[2021-10-06] MEDS: acetaZOLAMIDE 250 MG TABLET PO SCH (10:13)
[2021-10-06] MEDS: Carbidopa/Levodopa 25/100 TABLET PO SCH (10:13)
== END 2021-10-06 18:31 | disposition home health service (06) | DRG 190 ==
LOC: INPGRE 09-29 18:26
PROVIDERS: ADMIT Family Medicine; ATTEND Family Medicine